=== PATIENT | female | born 1935 | race Caucasian/White ===

== ENCOUNTER 2016-11-20 17:00 | Inpatient (IN) | payer OTHER ==
--- NOTE | 2016-11-20 18:39 | EDPHY ---
H & P Time Seen by Provider: 11/20/16 18:39 HPI/ROS: CHIEF COMPLAINT: Worsening tremors HISTORY OF PRESENT ILLNESS: Patient tells me that she was possibly diagnosed with Parkinson's in the remote past but nothing definite. Over the last week she has had increasing tremors worse in the morning with difficulty walking and being unsteady. She normally uses a walker and has tremors in the morning when both her arms and legs. Her daughter states she is so unsteady that she can feed herself breakfast or lunch and this is a problem in her current independent living situation. She does drink daily and typically has wine in the morning and the patient says her symptoms might get better after the wine. REVIEW OF SYSTEMS: Eye: no change in vision ENT: no sore throat Cardiac: no chest pain or syncope Pulmonary: no cough or SOB Abdomen: no vomiting, diarrhea, abdominal pain Musculoskeletal: no back pain Skin: no rash Neuro: no headache Constitutional: no fever : no urinary symptoms A comprehensive 10 point review of systems is otherwise negative aside from elements mentioned in the history of present illness. PAST MEDICAL HISTORY: Includes cataract surgery, hypertension, frozen right shoulder. Social history: Here with her daughter. Independent living. Daily alcohol. General Appearance: Alert and conversant, cooperative. Eyes: No scleral icterus. Eyes show previous cataract surgery. A little bit of a left eyelid droop which is chronic for the patient and not new. ENT, Mouth: Normal mucous membranes. Respiratory: Normal respiratory effort, breath sounds equal, lungs are clear to auscultation. Cardiovascular: Regular rate and rhythm. Gastrointestinal: Abdomen is soft and non tender. Neurological: Alert and oriented x3. Normally conversant. Face symmetric, normal movement and sensation in all extremities. Not currently tremulous. Her forehead wrinkle symmetrically and her face is able to be symmetric when she actively shows her teeth or tries to raise both eyelids. Skin: Warm and dry, no rashes. Musculoskeletal: No peripheral edema and no joint swelling. No midline spinal tenderness. Decreased range of motion right shoulder which is chronic. Psychiatric: Not agitated. Emergency Department course/MDM: Differential broad and includes Parkinson's and alcohol withdrawal and other neurologic. I think it is unlikely she is having seizures or sepsis or bacteremia. Admission hospitalist because the patient is unsafe at home for further evaluation, safety evaluation. Urine culture pending, patient does not have urinary symptoms. Smoking Status: Never smoked Constitutional: Initial Vital Signs Temperature (C) 37 C 11/20/16 17:13 Heart Rate 91 11/20/16 17:13 Respiratory Rate 18 11/20/16 17:13 Blood Pressure 117/68 11/20/16 17:13 O2 Sat (%) 92 11/20/16 17:13 O2 Delivery Mode Room Air Allergies/Adverse Reactions: No Known Allergies Allergy (Unverified 11/20/16 17:11) Home Medications: Medication Instructions Recorded Aspirin EC [Aspirin EC 81 mg (*)] 81 mg PO DAILY 11/20/16 Atorvastatin Calcium [Lipitor 10 10 mg PO DAILY 11/20/16 mg (*)] C/E/Zn/Cu/OM3/DHA/EPA/LUT/ZEAX 1 each PO BID 11/20/16 [Preservision Areds 2 Softgel] Cyanocobalamin [Vitamin B12 (*)] 100 mcg PO DAILY 11/20/16 Losartan Potassium [Cozaar] 100 mg PO HS 11/20/16 Methylphenidate HCl [Ritalin 5mg 2.5 mg PO DAILY 11/20/16 (*)] Metoprolol Tartrate [Lopressor 25 25 mg PO BID 11/20/16 mg (*)] PARoxetine HCL [Paxil 20mg (*)] 20 mg PO DAILY 11/20/16 hydrOXYzine HCL [hydrOXYzine HCL 25 mg PO HS 11/20/16 (RX)] traZODone [traZODONE 50MG (*)] 50 mg PO HS 11/20/16 Medical Decision Making Differential Diagnosis: Differential for weakness and tremors considered including but not limited to alcohol withdrawal, seizure disorder, metabolic, sepsis. Consult/Admit Bed Type: [facility] hospitalist - Data Points Laboratory Results: Laboratory Results 11/20/16 18:45 11/20/16 18:45 11/20/16 11/20/16 19:50 18:45 WBC 8.13 10^3/uL (3.80-9.50) RBC 4.04 L 10^6/uL (4.18-5.33) Hgb 13.0 g/dL (12.6-16.3) Hct 38.0 % (38.0-47.0) MCV 94.1 fL (81.5-99.8) MCH 32.2 pg (27.9-34.1) MCHC 34.2 g/dL (32.4-36.7) RDW 12.3 % (11.5-15.2) Plt Count 267 10^3/uL (150-400) MPV 9.0 fL (8.7-11.7) Neut % (Auto) 56.4 % (39.3-74.2) Lymph % (Auto) 29.0 % (15.0-45.0) [place] % (Auto) 12.9 % (4.5-13.0) Eos % (Auto) 0.7 % (0.6-7.6) Baso % (Auto) 0.5 % (0.3-1.7) Nucleat RBC Rel Count 0.0 % (0.0-0.2) Absolute Neuts (auto) 4.58 10^3/uL (1.70-6.50) Absolute Lymphs (auto) 2.36 10^3/uL (1.00-3.00) Absolute Monos (auto) 1.05 H 10^3/uL (0.30-0.80) Absolute Eos (auto) 0.06 10^3/uL (0.03-0.40) Absolute Basos (auto) 0.04 10^3/uL (0.02-0.10) Absolute Nucleated RBC 0.00 10^3/uL (0-0.01) Immature Gran % 0.5 % (0.0-1.1) Immature Gran # 0.04 10^3/uL (0.00-0.10) Sodium 137 mEq/L (134-144) Potassium 4.0 mEq/L (3.5-5.2) Chloride 97 mEq/L (97-110) Carbon Dioxide 24 mEq/l (22-31) Anion Gap 16 mEq/L (8-16) BUN 11 mg/dL (7-23) Creatinine 0.8 mg/dL (0.6-1.0) Estimated GFR > 60 Glucose 93 mg/dL (70-100) Calcium 8.9 mg/dL (8.5-10.4) Total Bilirubin 0.4 mg/dL (0.1-1.4) Conjugated Bilirubin 0.2 mg/dL (0.0-0.5) Unconjugated Bilirubin 0.2 mg/dL (0.0-1.1) AST 45 IU/L (14-46) ALT 43 IU/L (9-52) Alkaline Phosphatase 121 IU/L (38-126) Total Protein 6.4 g/dL (6.3-8.2) Albumin 3.6 g/dL (3.5-5.0) Urine Color YELLOW Urine Appearance HAZY Urine pH 5.0 (5.0-7.5) Ur Specific [place] 1.004 (1.002-1.030) Urine Protein NEGATIVE (NEGATIVE) Urine Ketones NEGATIVE (NEGATIVE) Urine Blood 1+ H (NEGATIVE) Urine Nitrate POSITIVE H (NEGATIVE) Urine Bilirubin NEGATIVE (NEGATIVE) Urine Urobilinogen NEGATIVE EU (0.2-1.0) Ur Leukocyte Esterase 2+ H (NEGATIVE) Urine RBC 1-3 /hpf (0-3) Urine WBC 15-25 H /hpf (0-3) Ur Epithelial Cells TRACE /lpf (NONE-1+) Urine Bacteria 2+ H /hpf (NONE SEEN) Urine Mucus TRACE /lpf (NONE-1+) Ur Culture Indicated? INDICATED H (NI) Urine Glucose NEGATIVE (NEGATIVE) Ethyl Alcohol 182 H mg/dL (0-10) Departure - Departure Disposition: [facility] Acute Clinical Impression: Alcohol intoxication Qualifiers: Complication of substance-induced condition: uncomplicated Qualifier Code: ( F10.120) Alcohol abuse with intoxication, uncomplicated Condition: Fair
[2016-11-20 19:02] LABS: % IMMATURE GRANULYOCYTES 0.5 % (0.0-1.1); ABSOLUTE IMMATURE GRANULOCYTES 0.04 10^3/uL (0.00-0.10); ADD DIFF? NO; ADD MORPH? NO; ADD SCAN? NO; ATYPICAL LYMPHOCYTE FLAG 10 (0-99); FRAGMENT RBC FLAG 0 (0-99); LEFT SHIFT FLG 0 (0-99); LIPEMIA HEMOLYSIS FLAG 90 (0-99); MEAN CELL HEMOGLOBIN 32.2 pg (27.9-34.1); MEAN CELL HEMOGLOBIN CONCENTR. 34.2 g/dL (32.4-36.7); MEAN CELL VOLUME 94.1 fL (81.5-99.8); PLATELET CLUMPS FLAG 0 (0-99); PLATELET COUNT 267 10^3/uL (150-400); RED BLOOD CELL COUNT 4.04 10^6/uL (4.18-5.33); RED CELL DISTRIBUTION WIDTH 12.3 % (11.5-15.2)
[2016-11-20 19:11] LABS: ALANINE AMINOTRANSFERASE 43 IU/L (9-52); ALBUMIN 3.6 g/dL (3.5-5.0); ALKALINE PHOSPHATASE 121 IU/L (38-126); ANION GAP 16 mEq/L (8-16); ASPARTATE AMINOTRANSFERASE 45 IU/L (14-46); BILIRUBIN,TOTAL 0.4 mg/dL (0.1-1.4); BILIRUBIN-CONJUGATED 0.2 mg/dL (0.0-0.5); BILIRUBIN-UNCONJUGATED 0.2 mg/dL (0.0-1.1); CALCIUM 8.9 mg/dL (8.5-10.4); CARBON DIOXIDE 24 mEq/l (22-31); CHLORIDE 97 mEq/L (97-110); CREATININE 0.8 mg/dL (0.6-1.0); ETHANOL SERUM 182 mg/dL (0-10); GLOMERULAR FILTRATION RATE > 60; GLUCOSE 93 mg/dL (70-100); SODIUM 137 mEq/L (134-144); TOTAL PROTEIN 6.4 g/dL (6.3-8.2)
[2016-11-20 20:17] LABS: COLOR YELLOW; LEUKOCYTE ESTERASE,URINE 2+ (NEGATIVE); NITRITE,URINE POSITIVE (NEGATIVE)
[2016-11-20 20:21] LABS: BACTERIA 2+ /hpf (NONE SEEN); MUCUS TRACE /lpf (NONE-1+); WBC,URINE 15-25 /hpf (0-3)
[2016-11-20] MEDS ORDERED: ONDANSETRON 4 MG/2 ML VIAL IVP PRN (22:22)
[2016-11-20] MEDS ORDERED: IBUPROFEN 200 MG TAB PO PRN (22:22)
[2016-11-20] MEDS ORDERED: ONDANSETRON DISINTEGRATING 4 MG TAB PO PRN (22:22)
[2016-11-20] MEDS ORDERED: LORazepam 2 MG/ML INJ IVP PRN (22:25)
[2016-11-20] MEDS ORDERED: NS 1,000 ML IV SCH (22:30)
[2016-11-20] MEDS: LOSARTAN POTASSIUM 50 MG TAB PO SCH (23:23)
[2016-11-20] MEDS: traZODone 100 MG TAB PO SCH (23:23)
[2016-11-20] MEDS: METOPROLOL TARTRATE 25 MG TAB PO SCH (23:23)
[2016-11-20] MEDS: hydrOXYzine HCL 25 MG TAB PO SCH (23:38)
--- NOTE | 2016-11-21 00:01 | PDGENHP ---
History and Physical - Chief Complaint Acute tremulousness - History of Present Illness PCP: Unknown HPI: This 81-year-old female presenting with acute tremulousness characterized as shaking in her bilateral upper extremities with associated gait unsteadiness with onset of symptoms approximately 2 weeks ago per patient. She reports that her symptoms are worse in the morning and exacerbated by ambulating. She also reports that they are somewhat alleviated by drinking wine or using Ritalin. She reports that she has been receiving a prescription for Ritalin for the past year from her primary care provider for tremulousness. It is unclear what diagnosis is being treated. Although the patient reports tremulousness for the last 2 weeks, she reports that she has had intermittent tremulousness in the past and has been previously told that she has a diagnosis of Parkinson's disease. She has never seen a neurologist and she has an appointment scheduled for Sunday. She denies any fever, chills, dysuria, polyuria, lower abdominal cramping, and she reports that in the past and she has had urinary tract infections she has noted symptomatic dysuria which she does not report at this time. Her last alcoholic beverage was reportedly 10 hours ago. Her daughter is concerned about her safety at independent living. History Information - Allergies/Home Medication List Allergies/Adverse Reactions: No Known Allergies Allergy (Unverified 11/20/16 17:11) Home Medications: Aspirin EC [Aspirin EC 81 mg (*)] 81 mg PO DAILY 11/20/16 [Last Taken 11/20/16] Atorvastatin Calcium [Lipitor 10 mg (*)] 10 mg PO DAILY 11/20/16 [Last Taken ] C/E/Zn/Cu/OM3/DHA/EPA/LUT/ZEAX [Preservision Areds 2 Softgel] 1 each PO BID [Last Taken 11/20/16] Cyanocobalamin [Vitamin B12 (*)] 100 mcg PO DAILY 11/20/16 [Last Taken 11/20/16] Losartan Potassium [Cozaar] 100 mg PO HS 11/20/16 [Last Taken 11/19/16] Methylphenidate HCl [Ritalin 5mg (*)] 2.5 mg PO DAILY 11/20/16 [Last Taken 11/20] Metoprolol Tartrate [Lopressor 25 mg (*)] 25 mg PO BID 11/20/16 [Last Taken ] PARoxetine HCL [Paxil 20mg (*)] 20 mg PO DAILY 11/20/16 [Last Taken 11/20/16] hydrOXYzine HCL [hydrOXYzine HCL (RX)] 25 mg PO HS 11/20/16 [Last Taken 11/19/16 ] traZODone [traZODONE 50MG (*)] 50 mg PO HS 11/20/16 [Last Taken 11/19/16] I have personally reviewed and updated: family history, medical history, social history, surgical history - Past Medical History hypertension Additional medical history: For [place] right shoulder - Surgical History Additional surgical history: Cataract surgery - Family History Additional family history: Patient denies family history of alcoholism - Social History Smoking Status: Never smoked Alcohol Use: Other (Daily, patient reportedly started drinking in the morning, the patient reports she only drinks 3 alcoholic beverages daily) Drug Use: None Additional social history: Lives in independent at [facility] Review of Systems ROS: 10pt was reviewed & negative except for what was stated in HPI & below Constitutional: Reports: weakness Neurological: Reports: tremors Physical Exam Temp Pulse Resp BP Pulse Ox 37 C 85 16 117/67 93 11/20/16 17:13 11/20/16 19:30 11/20/16 19:30 11/20/16 19:30 11/20/16 19:30 Constitutional: no apparent distress, not in pain, chronically ill appearing, No uncomfortable Eyes: EOMI, other (Left pupil slightly smaller than right, patient has post surgical pupil on the right) Ears, Nose, Mouth, Throat: moist mucous membranes, hearing normal, ears appear normal, no oral mucosal ulcers Cardiovascular: regular rate and rhythym, no murmur, rub, or gallop, No edema Respiratory: no respiratory distress, no rales or rhonchi, clear to auscultation Gastrointestinal: normoactive bowel sounds, soft, non-tender abdomen, no palpable masses Genitourinary: no bladder fullness, no bladder tenderness Skin: warm, normal color, no rashes or abrasions, no fluctuance, no induration, No mottled Neurologic: AAOx3, sensation intact bilaterally, No weakness (Motor strength 5/ 5 bilaterally), No asterixes (Tremulousness in left upper extremity) Psychiatric: interacting appropriately, not anxious, not encephalopathic, other (Potential but redirectable, concentration is 7/7), No agitated Lab Data & Imaging Review 11/20/16 18:45 11/20/16 18:45 WBC 8.13 10^3/uL (3.80-9.50) 11/20/16 18:45 RBC 4.04 10^6/uL (4.18-5.33) L 11/20/16 18:45 Hgb 13.0 g/dL (12.6-16.3) 11/20/16 18:45 Hct 38.0 % (38.0-47.0) 11/20/16 18:45 MCV 94.1 fL (81.5-99.8) 11/20/16 18:45 MCH 32.2 pg (27.9-34.1) 11/20/16 18:45 MCHC 34.2 g/dL (32.4-36.7) 11/20/16 18:45 RDW 12.3 % (11.5-15.2) 11/20/16 18:45 Plt Count 267 10^3/uL (150-400) 11/20/16 18:45 MPV 9.0 fL (8.7-11.7) 11/20/16 18:45 Neut % (Auto) 56.4 % (39.3-74.2) 11/20/16 18:45 Lymph % (Auto) 29.0 % (15.0-45.0) 11/20/16 18:45 [place] % (Auto) 12.9 % (4.5-13.0) 11/20/16 18:45 Eos % (Auto) 0.7 % (0.6-7.6) 11/20/16 18:45 Baso % (Auto) 0.5 % (0.3-1.7) 11/20/16 18:45 Nucleat RBC Rel Count 0.0 % (0.0-0.2) 11/20/16 18:45 Absolute Neuts (auto) 4.58 10^3/uL (1.70-6.50) 11/20/16 18:45 Absolute Lymphs (auto) 2.36 10^3/uL (1.00-3.00) 11/20/16 18:45 Absolute Monos (auto) 1.05 10^3/uL (0.30-0.80) H 11/20/16 18:45 Absolute Eos (auto) 0.06 10^3/uL (0.03-0.40) 11/20/16 18:45 Absolute Basos (auto) 0.04 10^3/uL (0.02-0.10) 11/20/16 18:45 Absolute Nucleated RBC 0.00 10^3/uL (0-0.01) 11/20/16 18:45 Immature Gran % 0.5 % (0.0-1.1) 11/20/16 18:45 Immature Gran # 0.04 10^3/uL (0.00-0.10) 11/20/16 18:45 Sodium 137 mEq/L (134-144) 11/20/16 18:45 Potassium 4.0 mEq/L (3.5-5.2) 11/20/16 18:45 Chloride 97 mEq/L (97-110) 11/20/16 18:45 Carbon Dioxide 24 mEq/l (22-31) 11/20/16 18:45 Anion Gap 16 mEq/L (8-16) 11/20/16 18:45 BUN 11 mg/dL (7-23) 11/20/16 18:45 Creatinine 0.8 mg/dL (0.6-1.0) 11/20/16 18:45 Estimated GFR > 60 11/20/16 18:45 Glucose 93 mg/dL (70-100) 11/20/16 18:45 Calcium 8.9 mg/dL (8.5-10.4) 11/20/16 18:45 Total Bilirubin 0.4 mg/dL (0.1-1.4) 11/20/16 18:45 Conjugated Bilirubin 0.2 mg/dL (0.0-0.5) 11/20/16 18:45 Unconjugated Bilirubin 0.2 mg/dL (0.0-1.1) 11/20/16 18:45 AST 45 IU/L (14-46) 11/20/16 18:45 ALT 43 IU/L (9-52) 11/20/16 18:45 Alkaline Phosphatase 121 IU/L (38-126) 11/20/16 18:45 Total Protein 6.4 g/dL (6.3-8.2) 11/20/16 18:45 Albumin 3.6 g/dL (3.5-5.0) 11/20/16 18:45 Urine Color YELLOW 11/20/16 19:50 Urine Appearance HAZY 11/20/16 19:50 Urine pH 5.0 (5.0-7.5) 11/20/16 19:50 Ur Specific [place] 1.004 (1.002-1.030) 11/20/16 19:50 Urine Protein NEGATIVE (NEGATIVE) 11/20/16 19:50 Urine Ketones NEGATIVE (NEGATIVE) 11/20/16 19:50 Urine Blood 1+ (NEGATIVE) H 11/20/16 19:50 Urine Nitrate POSITIVE (NEGATIVE) H 11/20/16 19:50 Urine Bilirubin NEGATIVE (NEGATIVE) 11/20/16 19:50 Urine Urobilinogen NEGATIVE EU (0.2-1.0) 11/20/16 19:50 Ur Leukocyte Esterase 2+ (NEGATIVE) H 11/20/16 19:50 Urine RBC 1-3 /hpf (0-3) 11/20/16 19:50 Urine WBC 15-25 /hpf (0-3) H 11/20/16 19:50 Ur Epithelial Cells TRACE /lpf (NONE-1+) 11/20/16 19:50 Urine Bacteria 2+ /hpf (NONE SEEN) H 11/20/16 19:50 Urine Mucus TRACE /lpf (NONE-1+) 11/20/16 19:50 Ur Culture Indicated? INDICATED (NI) H 11/20/16 19:50 Urine Glucose NEGATIVE (NEGATIVE) 11/20/16 19:50 Ethyl Alcohol 182 mg/dL (0-10) H 11/20/16 18:45 Assessment & Plan Assessment: 81-year-old female presenting with acute tremulousness secondary to suspected acute alcohol withdrawal Plan: 1. Acute alcohol withdrawal. Suspected, most likely manifesting in tremulousness and gait unsteadiness, worse in a.m., improved with alcohol intake -placed on CIWA protocol -recommend alcohol cessation -get PT/OT/case management to determine patient's needs at home -continue to monitor CIWA scoring and upgraded to inpatient tomorrow if score is rising and she is requiring regular use of IV and oral Ativan, alcohol level is 182 on presentation 2. Tremulousness. Acute, new problem to this provider, further w/u indicated. Most likely secondary to above, patient does not have any symptoms of urinary tract infection at this time, but if she does develop symptoms then antibiotics should be initiated -hold Ritalin as this can exacerbate tremulousness -if patient's tremulousness is increasing or is felt to not be secondary to above, would have low threshold to consult Neurology -patient has an MRI from 03/15/2015 demonstrating atrophy and white matter disease but no focal lesions -get TSH/Mg/Phos and repeat chemistries -cont IVF o/n 3. Hypertension. Chronic, continue medications Diet. Regular Prophylaxis. High risk patient, Lovenox 40 Code status. Do not resuscitate per patient, daughter is MPOA Disposition. Anticipated discharge is 11/21/2015, pending therapy evaluations and no clinical worsening. If patient does develop clinical worsening, she will require upgraded to inpatient admission status and exploration of her placement options. I have discussed the patient's presentation with Dr. Slade she has signed out the patient for admission to me at the end of her shift.
[2016-11-21 06:19] LABS: % IMMATURE GRANULYOCYTES 0.3 % (0.0-1.1); ABSOLUTE IMMATURE GRANULOCYTES 0.02 10^3/uL (0.00-0.10); ADD DIFF? NO; ADD MORPH? NO; ADD SCAN? NO; ATYPICAL LYMPHOCYTE FLAG 10 (0-99); FRAGMENT RBC FLAG 0 (0-99); HEMATOCRIT 36.8 % (38.0-47.0); HEMOGLOBIN 12.5 g/dL (12.6-16.3); LEFT SHIFT FLG 0 (0-99); LIPEMIA HEMOLYSIS FLAG 90 (0-99); MEAN CELL HEMOGLOBIN 31.3 pg (27.9-34.1); MEAN PLATELET VOLUME 9.4 fL (8.7-11.7); PLATELET CLUMPS FLAG 0 (0-99); PLATELET COUNT 242 10^3/uL (150-400); RED CELL DISTRIBUTION WIDTH 12.3 % (11.5-15.2)
[2016-11-21 06:35] LABS: INR 1.05 (0.83-1.16); PROTIME(PATIENT) 13.6 SEC (12.0-15.0)
[2016-11-21 06:58] LABS: ALANINE AMINOTRANSFERASE 53 IU/L (9-52); ALBUMIN 3.2 g/dL (3.5-5.0); ALKALINE PHOSPHATASE 101 IU/L (38-126); ANION GAP 10 mEq/L (8-16); ASPARTATE AMINOTRANSFERASE 39 IU/L (14-46); BILIRUBIN,TOTAL 0.8 mg/dL (0.1-1.4); CALCIUM 8.6 mg/dL (8.5-10.4); CARBON DIOXIDE 26 mEq/l (22-31); CHLORIDE 103 mEq/L (97-110); CREATININE 0.7 mg/dL (0.6-1.0); GLOMERULAR FILTRATION RATE > 60; GLUCOSE 79 mg/dL (70-100); MAGNESIUM 1.6 mg/dL (1.6-2.3); SODIUM 139 mEq/L (134-144); TOTAL PROTEIN 5.8 g/dL (6.3-8.2)
[2016-11-21] MEDS: ATORVASTATIN CALCIUM 10 MG TAB PO SCH (08:34)
[2016-11-21] MEDS: PRESERVISION AREDS2 FORMULA EYE VIT 1 EACH PO SCH ×2 (08:34→20:45)
[2016-11-21] MEDS: METOPROLOL TARTRATE 25 MG TAB PO SCH ×2 (08:34→20:45)
[2016-11-21] MEDS: ENOXAPARIN 40 MG/0.4 ML SYR SC SCH (08:35)
[2016-11-21] MEDS: ASPIRIN EC 81 MG TAB PO SCH (08:35)
[2016-11-21] MEDS: CYANO/VITAMIN B12 100 MCG TAB PO SCH (08:35)
[2016-11-21] MEDS: PARoxetine HCL 20 MG TAB PO SCH (08:35)
[2016-11-21] MEDS: LORazepam 1 MG TAB PO PRN ×2 (10:47→17:28)
--- NOTE | 2016-11-21 12:46 | PDIAF ---
- Diagnosis Code Status: Do Not Resuscitate - Medication Management Discharge Medications: Medications to Continue on Transfer Aspirin EC [Aspirin EC 81 mg (*)] 81 mg PO DAILY 11/20/16 [Last Taken 11/20/16] Atorvastatin Calcium [Lipitor 10 mg (*)] 10 mg PO DAILY 11/20/16 [Last Taken ] C/E/Zn/Cu/OM3/DHA/EPA/LUT/ZEAX [Preservision Areds 2 Softgel] 1 each PO BID [Last Taken 11/20/16] Cyanocobalamin [Vitamin B12 (*)] 100 mcg PO DAILY 11/20/16 [Last Taken 11/20/16] Losartan Potassium [Cozaar] 100 mg PO HS 11/20/16 [Last Taken 11/19/16] Methylphenidate HCl [Ritalin 5mg (*)] 2.5 mg PO DAILY 11/20/16 [Last Taken 11/20] Metoprolol Tartrate [Lopressor 25 mg (*)] 25 mg PO BID 11/20/16 [Last Taken ] PARoxetine HCL [Paxil 20mg (*)] 20 mg PO DAILY 11/20/16 [Last Taken 11/20/16] hydrOXYzine HCL [hydrOXYzine HCL (RX)] 25 mg PO HS 11/20/16 [Last Taken 11/19/16 ] traZODone [traZODONE 50MG (*)] 50 mg PO HS 11/20/16 [Last Taken 11/19/16] Discharge Medications: Refer to the Discharge Home Medication list for PRN reason. - Orders Services needed: Registered Nurse, Certified Registry Rn, Physical Therapy, Occupational Therapy - Follow Up Care Current Providers and Referrals: Cecelia Reno MD [Primary Care Provider] -
[2016-11-21] MEDS ORDERED: amLODIPine BESYLATE 5 MG TAB PO SCH (13:00)
[2016-11-21 13:37] LABS: FOLATE SERUM 12.9 ng/mL (2.80 - >20.00)
--- NOTE | 2016-11-21 18:29 | HOSPPROG ---
Hospitalist Progress Note Assessment/Plan: #Acute Etoh withdrawal -[facility] protocol #Gram negative UTI -cont CTX, culture #Tremors -stated started 2 weeks ago -unclear if separate issue; she states reported Parkinson's -will treat Etoh w/d and then reassess -check TSH, folate, B12 #Accelerated HTN -Etoh w/d contributing #etoh abuse: counseled on cessation #Gait instability: due to tremors vs Etoh #Diet: regular #Disp: pt warrants inpatient admission with risk for fall and self-harm. PT eval and likely SNF placement Subjective: tremors with standing at home Objective: Vital Signs Temp Pulse Resp BP Pulse Ox 37.3 C 76 17 144/78 H 96 11/21/16 15:11 11/21/16 15:11 11/21/16 15:11 11/21/16 15:11 11/21/16 15:11 11/20/16 11/21/16 11/22/16 05:59 05:59 05:59 Intake Total 125 Output Total 150 Balance -25 PT 13.6 SEC (12.0-15.0) 11/21/16 05:53 INR 1.05 (0.83-1.16) 11/21/16 05:53 - Physical Exam Constitutional: no apparent distress Eyes: PERRL Ears, Nose, Mouth, Throat: moist mucous membranes, hearing normal Cardiovascular: regular rate and rhythym, no murmur, rub, or gallop Respiratory: no respiratory distress, no rales or rhonchi Gastrointestinal: normoactive bowel sounds, soft, non-tender abdomen Genitourinary: no bladder fullness Skin: warm Musculoskeletal: full muscle strength, other (decreased muscle strength RUE ) Neurologic: AAOx3 Psychiatric: interacting appropriately, other (tongue fasiculations, tremor) ICD10 Worksheet Patient Problems: Problems Problem Status Diagnosed Alcohol intoxication Acute
[2016-11-21] MEDS: traZODone 100 MG TAB PO SCH (20:42)
[2016-11-21] MEDS: LOSARTAN POTASSIUM 50 MG TAB PO SCH (20:45)
[2016-11-21] MEDS: hydrOXYzine HCL 25 MG TAB PO SCH (20:45)
[2016-11-22] MEDS: ENOXAPARIN 40 MG/0.4 ML SYR SC SCH (09:00)
[2016-11-22] MEDS: PARoxetine HCL 20 MG TAB PO SCH (09:00)
[2016-11-22] MEDS: ASPIRIN EC 81 MG TAB PO SCH (09:00)
[2016-11-22] MEDS: PRESERVISION AREDS2 FORMULA EYE VIT 1 EACH PO SCH ×2 (09:00→21:02)
[2016-11-22] MEDS: ATORVASTATIN CALCIUM 10 MG TAB PO SCH (09:00)
[2016-11-22] MEDS: METOPROLOL TARTRATE 25 MG TAB PO SCH ×2 (09:00→21:02)
[2016-11-22] MEDS: CYANO/VITAMIN B12 100 MCG TAB PO SCH (09:00)
--- NOTE | 2016-11-22 16:05 | HOSPPROG ---
Hospitalist Progress Note Assessment/Plan: #Acute Etoh withdrawal -CIWA protocol. Symptoms minimal today # E coli UTI Day 12/01 ceftriaxone, stop 11/23 -cont CTX, culture #Tremors -stated started 2 weeks ago -unclear if separate issue; she states reported Parkinson's -suspect due to UTI and Etoh abuse -TSH, folate, B12 normal #Accelerated HTN -Etoh w/d contributing #Etoh abuse: counseled on cessation #Gait instability: due to tremors vs. Etoh #Diet: regular #Disp: pt warrants inpatient admission with risk for fall and self-harm. Await 3 MN for SNF placement Subjective: feeling less shakey today Objective: Vital Signs Temp Pulse Resp BP Pulse Ox 37.2 C 75 20 149/101 H 97 11/22/16 11:25 11/22/16 11:25 11/22/16 11:25 11/22/16 11:25 11/22/16 11:25 11/21/16 11/22/16 11/23/16 05:59 05:59 05:59 Intake Total 805 Output Total 150 Balance 655 PT 13.6 SEC (12.0-15.0) 11/21/16 05:53 INR 1.05 (0.83-1.16) 11/21/16 05:53 - Physical Exam Constitutional: no apparent distress Eyes: PERRL Ears, Nose, Mouth, Throat: moist mucous membranes, hearing normal Cardiovascular: regular rate and rhythym, no murmur, rub, or gallop Respiratory: no respiratory distress Gastrointestinal: normoactive bowel sounds, soft, non-tender abdomen Genitourinary: no bladder fullness Skin: warm, normal color Musculoskeletal: other (frozen left shoulder) Neurologic: AAOx3, other (less tremulous today.) ICD10 Worksheet Patient Problems: Problems Problem Status Diagnosed Alcohol intoxication Acute
[2016-11-22] MEDS: ACETAMINOPHEN 325 MG TAB PO PRN (16:54)
[2016-11-22] MEDS: LORazepam 1 MG TAB PO PRN (16:54)
[2016-11-22] MEDS: traZODone 100 MG TAB PO SCH (21:00)
[2016-11-22] MEDS: hydrOXYzine HCL 25 MG TAB PO SCH (21:01)
[2016-11-22] MEDS: LOSARTAN POTASSIUM 50 MG TAB PO SCH (21:03)
[2016-11-23 05:34] LABS: HEMATOCRIT 36.1 % (38.0-47.0); HEMOGLOBIN 12.2 g/dL (12.6-16.3); MEAN CELL HEMOGLOBIN CONCENTR. 33.8 g/dL (32.4-36.7); MEAN CELL VOLUME 94.8 fL (81.5-99.8); RED BLOOD CELL COUNT 3.81 10^6/uL (4.18-5.33); RED CELL DISTRIBUTION WIDTH 12.2 % (11.5-15.2)
[2016-11-23 06:09] LABS: ANION GAP 9 mEq/L (8-16); CALCIUM 8.7 mg/dL (8.5-10.4); CARBON DIOXIDE 28 mEq/l (22-31); CHLORIDE 103 mEq/L (97-110); CREATININE 0.7 mg/dL (0.6-1.0); GLOMERULAR FILTRATION RATE > 60; GLUCOSE 78 mg/dL (70-100); POTASSIUM 3.8 mEq/L (3.5-5.2); SODIUM 140 mEq/L (134-144)
[2016-11-23] MEDS: ENOXAPARIN 40 MG/0.4 ML SYR SC SCH (08:59)
[2016-11-23] MEDS: PRESERVISION AREDS2 FORMULA EYE VIT 1 EACH PO SCH ×2 (09:00→20:50)
[2016-11-23] MEDS: CYANO/VITAMIN B12 100 MCG TAB PO SCH (09:00)
[2016-11-23] MEDS: ASPIRIN EC 81 MG TAB PO SCH (09:00)
[2016-11-23] MEDS: PARoxetine HCL 20 MG TAB PO SCH (09:00)
[2016-11-23] MEDS: ATORVASTATIN CALCIUM 10 MG TAB PO SCH (09:00)
[2016-11-23] MEDS: METOPROLOL TARTRATE 25 MG TAB PO SCH ×2 (09:00→20:51)
[2016-11-23 12:15] LABS: COLOR YELLOW; LEUKOCYTE ESTERASE,URINE 2+ (NEGATIVE); NITRITE,URINE NEGATIVE (NEGATIVE)
[2016-11-23 12:58] LABS: BACTERIA TRACE /hpf (NONE SEEN); MUCUS TRACE /lpf (NONE-1+)
[2016-11-23] MEDS: LORazepam 1 MG TAB PO PRN (15:18)
[2016-11-23] MEDS: ACETAMINOPHEN 325 MG TAB PO PRN ×2 (15:22→20:49)
--- NOTE | 2016-11-23 16:46 | HOSPPROG ---
Hospitalist Progress Note Assessment/Plan: 81 yo F with hx of etoh abuse presenting with etoh w/d and inability to ambulate # etoh w/d: placed on ciwa, has been improving and today has low scores, she states she does plan to quit drinking etoh # gait instability: limited by her tremulousness and dependence on using a walker which she is unable to do safely currently, pt/ot/snf # uti: growing castañeda sensitive e coli, currently day 3 of ctx, will transition to oral levofloxacin to complete a 10 day course and treat as complicated uti in patient with concurrent weakness partially related to uti # htn: continue bb/losartan, bp mildly elevated likely being driven by withdrawal # HLD: continue statin # dispo: dc to snf likely in am # dnr # patient new to my care. old records reviewed and summarized as above. Care plan reviewed with CM, further hx obtained from patients daughter present at bedside. Subjective: no significant overnight events, patient is feeling better, she feels ready for dc to snf in am Objective: Vital Signs Temp Pulse Resp BP Pulse Ox 36.3 C 84 20 168/100 H 93 11/23/16 15:27 11/23/16 15:27 11/23/16 15:27 11/23/16 15:27 11/23/16 15:27 Laboratory Results 11/23/16 03:51 11/23/16 03:51 11/22/16 11/23/16 11/24/16 05:59 05:59 05:59 Intake Total 805 200 Output Total 150 50 300 Balance 655 150 -300 PT 13.6 SEC (12.0-15.0) 11/21/16 05:53 INR 1.05 (0.83-1.16) 11/21/16 05:53 awake alert nad anicteric op clear rrr systolic murmur and gallop cta b soft nt nd no cce warm dry well perfused oriented tremulous appropriate ICD10 Worksheet Patient Problems: Problems Problem Status Diagnosed Alcohol intoxication Acute
[2016-11-23] MEDS: LOSARTAN POTASSIUM 50 MG TAB PO SCH (16:57)
[2016-11-23] MEDS: hydrOXYzine HCL 25 MG TAB PO SCH (20:50)
[2016-11-23] MEDS: traZODone 100 MG TAB PO SCH (20:52)
[2016-11-24 04:30] VITALS: RESP 20
[2016-11-24] MEDS: ENOXAPARIN 40 MG/0.4 ML SYR SC SCH (09:50)
[2016-11-24] MEDS: CYANO/VITAMIN B12 100 MCG TAB PO SCH (09:51)
[2016-11-24] MEDS: PARoxetine HCL 20 MG TAB PO SCH (09:51)
[2016-11-24] MEDS: ASPIRIN EC 81 MG TAB PO SCH (09:51)
[2016-11-24] MEDS: METOPROLOL TARTRATE 25 MG TAB PO SCH (09:51)
[2016-11-24] MEDS: ATORVASTATIN CALCIUM 10 MG TAB PO SCH (09:51)
[2016-11-24] MEDS: PRESERVISION AREDS2 FORMULA EYE VIT 1 EACH PO SCH (09:51)
--- NOTE | 2016-11-24 10:07 | PDIAF ---
- Diagnosis Code Status: Do Not Resuscitate - Medication Management Discharge Medications: Medications to Continue on Transfer Aspirin EC [Aspirin EC 81 mg (*)] 81 mg PO DAILY 11/20/16 [Last Taken 11/20/16] Atorvastatin Calcium [Lipitor 10 mg (*)] 10 mg PO DAILY 11/20/16 [Last Taken ] C/E/Zn/Cu/OM3/DHA/EPA/LUT/ZEAX [Preservision Areds 2 Softgel] 1 each PO BID [Last Taken 11/20/16] Cyanocobalamin [Vitamin B12 (*)] 100 mcg PO DAILY 11/20/16 [Last Taken 11/20/16] Losartan Potassium [Cozaar] 100 mg PO HS 11/20/16 [Last Taken 11/19/16] Methylphenidate HCl [Ritalin 5mg (*)] 2.5 mg PO DAILY 11/20/16 [Last Taken 11/20] Metoprolol Tartrate [Lopressor 25 mg (*)] 25 mg PO BID 11/20/16 [Last Taken ] PARoxetine HCL [Paxil 20mg (*)] 20 mg PO DAILY 11/20/16 [Last Taken 11/20/16] hydrOXYzine HCL [hydrOXYzine HCL (RX)] 25 mg PO HS 11/20/16 [Last Taken 11/19/16 ] traZODone [traZODONE 50MG (*)] 50 mg PO HS 11/20/16 [Last Taken 11/19/16] Acetaminophen [Tylenol 325mg (*)] 650 mg PO Q4HRS PRN #0 tab 11/24/16 [Last Taken Unknown] Ibuprofen [Motrin (*)] 400 mg PO Q4HRS PRN #0 tab 11/24/16 [Last Taken Unknown] levOFLOXACIN [levAQUIN (*)] 750 mg PO DAILY AT 10AM #6 tab 11/24/16 [Last Taken Unknown] Discharge Medications: Refer to the Discharge Home Medication list for PRN reason. - Orders Services needed: Registered Nurse, Certified Light Cleaner, Physical Therapy, Occupational Therapy Activity/Weight Bearing Restrictions: Fall risk, walker, ambulate tid with assist Additional: Complete 6 more days of levofloxacin - Follow Up Care Current Providers and Referrals: Cecelia Reno MD [Primary Care Provider] -
[2016-11-24 11:54] VITALS: BP 157/99; PULSE 84; TEMP 99.5; O2SAT 95
--- NOTE | 2016-11-24 16:59 | PDDCSUM ---
Discharge Summary Discharge Summary: Dates of service 11/20-11/24/16 Consultations/procedures: none Hospital course by problem: # etoh w/d: placed on ciwa, has been improving and no longer requiring benzos, she states she does plan to quit drinking etoh # gait instability: limited by her tremulousness and dependence on using a walker which she is unable to do safely currently, pt/ot/snf # uti: growing castañeda sensitive e coli, completed 3 days of ctx, transitioned to oral levofloxacin to complete a 10 day course and treat as complicated uti in patient with concurrent weakness partially related to uti # htn: continue bb/losartan, bp mildly elevated likely being driven by withdrawal # HLD: continue statin Dispo: dc to snf F/u with PCP after dc from snf >35 minutes spent in care of this patient, more than half in coordination of care
== END 2016-11-24 12:55 | DRG 897 ==
LOC: INTOOBSV 20:00 → F2W 21:27 → OBSVTOIN 11-21 12:46
PROVIDERS: ADMIT Internal Medicine; ATTEND Internal Medicine
DX: F10.239 Alcohol dependence with withdrawal, unspecified (principal); R25.1 Tremor, unspecified; N39.0 Urinary tract infection, site not specified; B96.20 Unspecified Escherichia coli [E. coli] as the cause of diseases classified elsewhere; I10 Essential (primary) hypertension; E78.5 Hyperlipidemia, unspecified; R26.9 Unspecified abnormalities of gait and mobility
CPT/HCPCS: 82607-90; 97116-GP; 97162-GP; 97165-GO; 97535-GO; G0378; G0397; G0480; G8978-GP-CK; G8979-GP-CI; G8987-GO-CJ; G8988-GO-CI; G8989-GO-CJ; J0696; J1650

== ENCOUNTER → 2017-07-16 | Outpatient (CLI) | payer OTHER | LOC: BHFA 14:45 | PROVIDERS: ATTEND Internal Medicine Interventional Cardiology | DX: I71.9 Aortic aneurysm of unspecified site, without rupture (principal) ==

== ENCOUNTER → 2018-02-14 | Outpatient (CLI) | payer OTHER ==
[~2018-02-14] MED LIST: IOPAMIDOL (ISOVUE-300) 100 ML BTL ONE
== END ==
LOC: CIMAGING 13:44
PROVIDERS: ATTEND Internal Medicine
DX: K76.9 Liver disease, unspecified (principal)
CPT/HCPCS: 74160; Q9967

== ENCOUNTER → 2018-08-12 | Outpatient (CLI) | payer OTHER | LOC: CIMAGING 08:01 | PROVIDERS: ATTEND Internal Medicine | DX: R16.0 Hepatomegaly, not elsewhere classified (principal); K76.0 Fatty (change of) liver, not elsewhere classified | CPT/HCPCS: 76705-PO ==

== ENCOUNTER → 2019-02-03 | Outpatient (CLI) | payer OTHER | LOC: BRMIMAGING 13:14 | PROVIDERS: ATTEND Internal Medicine | DX: N63.11 Unspecified lump in the right breast, upper outer quadrant (principal) | CPT/HCPCS: 76641-PO ==

== ENCOUNTER → 2019-02-12 | Outpatient (CLI) | payer OTHER ==
[~2019-02-12] MED LIST changes: +BUPIVACAINE 0.5% 30 ML SDV ONE; -IOPAMIDOL (ISOVUE-300) 100 ML BTL ONE; +LIDOCAINE 1% 300 MG/30 ML SDV ONE
== END ==
LOC: FIMAGING 07:20
PROVIDERS: ATTEND Internal Medicine
PROC: 0HBT3ZX Excision of Right Breast, Percutaneous Approach, Diagnostic (ICD-10-PCS; principal; 2019-02-12)
DX: N63.10 Unspecified lump in the right breast, unspecified quadrant (principal); R92.8 Other abnormal and inconclusive findings on diagnostic imaging of breast; C50.911 Malignant neoplasm of unspecified site of right female breast

== ENCOUNTER 2019-02-26 08:29 | Day surgery (SDC) | payer OTHER ==
[2019-02-26] MEDS ORDERED: ceFAZolin 2 GM/DEXTROSE 100 ML IV ONE (08:45)
[2019-02-26] MEDS ORDERED: LR 1,000 ML IV ONE (08:45)
[2019-02-26] MEDS ORDERED: BUPIVACAINE 0.5% 30 ML SDV ONE (09:36)
[2019-02-26] MEDS ORDERED: LIDOCAINE 1% 300 MG/30 ML SDV ONE (09:36)
[2019-02-26] MEDS ORDERED: PROPOFOL 200 MG/20 ML VIAL ONE (11:00)
[2019-02-26] MEDS ORDERED: fentaNYL 100 MCG/2 ML INJ ONE (11:00)
[2019-02-26] MEDS ORDERED: fentaNYL 100 MCG/2 ML INJ IVP PRN (12:09)
[2019-02-26] MEDS ORDERED: ONDANSETRON 4 MG/2 ML VIAL IVP PRN (12:09)
[2019-02-26] MEDS ORDERED: NALOXONE HCL 0.4 MG/ML INJ IVP PRN (12:09)
[2019-02-26] MEDS ORDERED: PROMETHAZINE HCL 25 MG/ML INJ IVP PRN (12:09)
== END 2019-02-26 13:45 | disposition home or self-care (01) ==
DX: C50.411 Malignant neoplasm of upper-outer quadrant of right female breast (principal); I10 Essential (primary) hypertension; G47.30 Sleep apnea, unspecified
CPT/HCPCS: 19302; 78195; A9520